=== PATIENT | female | born 1945 | race Caucasian/White ===

== ENCOUNTER 2019-01-28 18:31 | Inpatient (IN) | payer OTHER ==
[~2019-01-28] VITALS: Ht 162.6 cm; Wt 106.3 kg
[2019-01-28 20:10] LABS: BASOPHILS % 0.6 % (0.0-2.0); EOSINOPHILS % 0.1 % (0.0-5.0); HEMATOCRIT. 43.4 % (36.0-48.0); HEMOGLOBIN. 14.5 g/dL (12.0-16.0); LYMPHOCYTES % 16.2 % (20.0-50.0); MEAN CORPUSCULAR HEMOGLOBIN 30.1 pg (28.0-32.0); MEAN CORPUSCULAR VOLUME 90.4 fL (81.0-99.0); MEAN PLATELET VOLUME 9.8 fl (7.4-10.4); NEUTROPHILS % 76.1 % (40.0-76.0); PLATELET 199 x1000/uL (130-400); RED CELL DISTRIBUTION WIDTH 14.8 % (11.6-14.6)
[2019-01-28 20:15] LABS: CHLORIDE 111 mEq/L (98-107)
[2019-01-28] MEDS: ASPIRIN 325MG EC TABLET PO NR (21:14)
[2019-01-28] MEDS ORDERED: ENOXAPARIN 80MG/0.8ML SYR SUBCUT SCH (22:15)
[2019-01-28] MEDS ORDERED: IOHEXOL-350 100 ML BOTTLE ONE (22:21)
[2019-01-29] VITALS (10 sets, daily range): BP systolic 107–149; BP diastolic 50–90
[2019-01-29] MEDS ORDERED: ENOXAPARIN 80MG/0.8ML SYR SUBCUT SCH (02:30)
[2019-01-29] MEDS ORDERED: METO100T16 PO (04:24)
[2019-01-29] MEDS ORDERED: VYT1020 PO (04:24)
[2019-01-29] MEDS ORDERED: PNEUMOCOCCAL 23-VAL P-SAC VAC 0.5 ML IM ONE (06:00)
[2019-01-29 08:43] LABS: CHLORIDE 110 mEq/L (98-107)
[2019-01-29 08:49] LABS: HEMATOCRIT 41.9 % (36.0-48.0); HEMOGLOBIN 13.9 g/dL (12.0-16.0); MEAN CORPUSCULAR HEMOGLOBIN 29.7 pg (28.0-32.0); MEAN CORPUSCULAR VOLUME 89.9 fL (81.0-99.0); PLATELET 190 x1000/uL (130-400); RED BLOOD CELL COUNT 4.66 mill/uL (4.2-5.4); RED CELL DISTRIBUTION WIDTH 14.5 % (11.6-14.6)
[2019-01-29] MEDS ORDERED: METOPROLOL TARTRATE 25MG TABLET PO SCH (09:00)
[2019-01-29] MEDS ORDERED: LACTULOSE 20G/30ML UDC PO NR (11:15)
[2019-01-29 11:34] LABS: PARTIAL THROMBOPLASTIN TIME 28.8 sec (23.4-31.0); PROTHROMBIN TIME 10.6 sec (9.6-11.0)
[2019-01-29] MEDS: DOCUSATE SODIUM 250MG CAPSULE PO SCH (11:39)
[2019-01-29] MEDS ORDERED: INFLUENZA VIRUS VACCINE(AFLURIA) 0.5ML SYR IM ONE (12:00)
[2019-01-29] MEDS: ENOXAPARIN 120MG/0.8ML SYR SUBCUT SCH (14:28)
[2019-01-29] MEDS ORDERED: ATORVASTATIN CALCIUM 40MG TABLET PO SCH (21:00)
[2019-01-30] VITALS (8 sets, daily range): BP systolic 109–156; BP diastolic 55–92
[2019-01-30] MEDS: ENOXAPARIN 120MG/0.8ML SYR SUBCUT SCH (03:17)
[2019-01-30 06:31] LABS: CHLORIDE 107 mEq/L (98-107)
[2019-01-30 06:41] LABS: BASOPHILS % 0.8 % (0.0-2.0); EOSINOPHILS % 1.1 % (0.0-5.0); HEMATOCRIT. 40.9 % (36.0-48.0); HEMOGLOBIN. 13.8 g/dL (12.0-16.0); LYMPHOCYTES % 28.8 % (20.0-50.0); MEAN CORPUSCULAR VOLUME 89.4 fL (81.0-99.0); MEAN PLATELET VOLUME 9.7 fl (7.4-10.4); MONOCYTES % 11.1 % (2.0-8.0); NEUTROPHILS % 58.2 % (40.0-76.0); PLATELET 185 x1000/uL (130-400); RED BLOOD CELL COUNT 4.58 mill/uL (4.2-5.4)
[2019-01-30] MEDS: DOCUSATE SODIUM 250MG CAPSULE PO SCH (08:16)
[2019-01-30] MEDS ORDERED: XAR15 MT (10:12)
== END 2019-01-30 13:20 | disposition home or self-care (01) | DRG 175 ==
LOC: ER 19:09 → EDBEDREQ 19:51 → EDBEDREQTM 21:45 → 3WST 22:02 → EDBEDREQTM 22:09 → EDBEDREQSVC 22:09 → ENRESERV 01-29 02:48
PROVIDERS: ADMIT Internal Medicine; ATTEND Internal Medicine
DX: I26.99 Other pulmonary embolism without acute cor pulmonale (principal); J96.00 Acute respiratory failure, unspecified whether with hypoxia or hypercapnia; D68.59 Other primary thrombophilia; Z68.41 Body mass index [BMI] 40.0-44.9, adult; E87.8 Other disorders of electrolyte and fluid balance, not elsewhere classified; E66.9 Obesity, unspecified; I27.20 Pulmonary hypertension, unspecified; I10 Essential (primary) hypertension; E78.5 Hyperlipidemia, unspecified; K76.89 Other specified diseases of liver; I07.1 Rheumatic tricuspid insufficiency; R74.0 Nonspecific elevation of levels of transaminase and lactic acid dehydrogenase [LDH]; Z79.899 Other long term (current) drug therapy; Z71.3 Dietary counseling and surveillance
CPT/HCPCS: 36415; 71045; 71275; 76700; 80048; 80053; 83880; 84484; 85025; 85027; 85379; 85384; 90732; 93005; 93306; 93970; 99291; J1650; Q9967